=== PATIENT | female | born 1965 | race Caucasian/White ===

== ENCOUNTER 2019-04-10 12:47 | Emergency (ER) | payer MEDICAID ==
[~2019-04-10] VITALS: Ht 147.3 cm; Wt 64.4 kg
[~2019-04-10 12:47] MED LIST: APAP/HYDROCODON1 T13 PO; ECO81 PO; METOPROLOL TART25 M1 PO; PRI20 PO; RANITIDINE150 MG PO; TRAMADOL50 MG PO; ZES10 PO; ZOC20 PO
[2019-04-10 12:51] VITALS: Ht 147.3 cm; Wt 64.4 kg
[2019-04-10 13:41] VITALS: BP 122/71
== END 2019-04-10 13:41 | disposition home or self-care (01) ==
LOC: ED 12:47
DX: T16.1XXA Foreign body in right ear, initial encounter (principal); X58.XXXA Exposure to other specified factors, initial encounter; Y93.89 Activity, other specified; Y92.89 Other specified places as the place of occurrence of the external cause; Y99.8 Other external cause status

== ENCOUNTER 2019-10-04 05:45 | Emergency (ER) | payer MEDICAID ==
[~2019-10-04] VITALS: Ht 152.4 cm; Wt 65.9 kg
[2019-10-04 05:59] VITALS: Ht 152.4 cm; Wt 65.9 kg
[2019-10-04 07:15] LABS: BASOPHIL % 0.4 % (0-2); PLATELET COUNT 167 x10^3mcL (130-400); RED CELL DISTRIBUTION WIDTH 13.4 % (11.5-14.5)
[2019-10-04 07:27] LABS: CALCIUM 8.5 mg/dL (8.5-10.1); CARBON DIOXIDE 25.3 mmol/L (21-32); CHLORIDE SERUM 106 mmol/L (98-107); CREATININE SERUM 0.6 mg/dL (0.6-1.0); GFR1 > 60 mL/min; GLUCOSE SERUM 117 mg/dL (74-106); POTASSIUM SERUM 3.4 mmol/L (3.5-5.1); SODIUM SERUM 141 mmol/L (136-145)
[2019-10-04 07:41] LABS: ALBUMIN 3.7 g/dL (3.4-5.0); ALKALINE PHOSPHATASE 107 U/L (46-116); ALT/SGPT 53 U/L (14-59); AST/SGOT 60 U/L (15-37); BILIRUBIN TOTAL 0.5 mg/dL (0.20-1.00); LIPASE 128 IU/L (73-393); TOTAL PROTEIN, SERUM 7.5 g/dL (6.4-8.2)
[2019-10-04 08:48] VITALS: BP 128/69
== END 2019-10-04 08:48 | disposition home or self-care (01) ==
LOC: ED 05:45
PROVIDERS: Emergency Medicine
DX: K29.70 Gastritis, unspecified, without bleeding (principal); E78.5 Hyperlipidemia, unspecified; Z88.0 Allergy status to penicillin
CPT/HCPCS: Q0092

== ENCOUNTER 2019-11-30 12:12 | Emergency (ER) | payer MEDICAID ==
[~2019-11-30] VITALS: Ht 157.5 cm; Wt 67.1 kg
[2019-11-30 13:37] VITALS: Ht 157.5 cm; Wt 67.1 kg
[2019-11-30 19:16] VITALS: BP 130/85
== END 2019-11-30 18:45 | disposition home or self-care (01) ==
LOC: ED 12:12
DX: S60.452A Superficial foreign body of right middle finger, initial encounter (principal); L03.011 Cellulitis of right finger; E78.5 Hyperlipidemia, unspecified; Z87.19 Personal history of other diseases of the digestive system; Z88.0 Allergy status to penicillin; X58.XXXA Exposure to other specified factors, initial encounter; Y93.89 Activity, other specified; Y92.89 Other specified places as the place of occurrence of the external cause; Y99.8 Other external cause status
CPT/HCPCS: 90715; J2001; Q0092

== ENCOUNTER 2019-12-03 12:55 | Emergency (ER) | payer MEDICAID | END 2019-12-03 15:21 | disposition home or self-care (01) | LOC: ED 12:55 | DX: Z48.01 Encounter for change or removal of surgical wound dressing (principal) ==

== ENCOUNTER 2019-12-30 11:49 | Emergency (ER) | payer MEDICAID ==
[~2019-12-30] VITALS: Ht 149.9 cm; Wt 67.6 kg
[2019-12-30 12:16] VITALS: Ht 149.9 cm; Wt 67.6 kg
[2019-12-30 15:02] VITALS: BP 133/75
== END 2019-12-30 15:03 | disposition home or self-care (01) ==
LOC: ED 11:49
DX: L01.00 Impetigo, unspecified (principal); L30.1 Dyshidrosis [pompholyx]; R03.0 Elevated blood-pressure reading, without diagnosis of hypertension; E78.5 Hyperlipidemia, unspecified; Z88.0 Allergy status to penicillin